=== PATIENT | female | born 1955 | race Caucasian/White ===

== ENCOUNTER 2018-06-03 14:24 | Outpatient (CLI) | payer OTHER ==
--- NOTE | 2018-06-04 12:00 | XRAY Report ---
Reason: LOW BACK PAIN, CHRONIC Procedure Date: 06/03/2018 Accession Number: [id number] / [id number] Procedure: WCP - Lumbar Spine 2 View CPT Code: FULL RESULT: EXAM: LUMBOSACRAL SPINE RADIOGRAPHY EXAM DATE: 06/03/2018 02:45 PM. CLINICAL HISTORY: Low back pain, chronic. COMPARISONS: None. TECHNIQUE: 2 views. FINDINGS: Alignment: Normal. No spondylolisthesis or scoliosis. Bones: Five [id number] lumbar vertebral bodies are present. No fractures or bone lesions. Disks: Mild degenerative disk changes predominately in the lower lumbar spine. Facets: Moderate facet arthropathy at L4 and L5. Sacroiliac Joints: Unremarkable. Soft Tissues: Normal. The visualized bowel gas pattern is normal. IMPRESSION: Overall mild degenerative changes. RADIA
== END 2018-06-03 14:25 | disposition home or self-care (01) ==
LOC: DI.WCP 14:24
PROVIDERS: ATTEND Family Medicine
DX: M51.36 Other intervertebral disc degeneration, lumbar region (principal); M47.9 Spondylosis, unspecified
CPT/HCPCS: 72100

== ENCOUNTER 2018-06-12 09:03 | Outpatient (CLI) | payer OTHER ==
[2018-06-12 13:05] LABS: BASOPHILS % (AUTO) 0.7 %; EOSINOPHILS # (AUTO) 0.2 10^3/uL (0.0-0.7); EOSINOPHILS % (AUTO) 2.5 %; HGB - HEMOGLOBIN 13.7 g/dL (12.0-16.0); LYMPHOCYTES # (AUTO) 1.4 10^3/uL (1.5-3.5); LYMPHOCYTES % (AUTO) 20.4 %; MEAN CORPUSCULAR HEMOGLOBIN 31.2 pg (27.0-31.0); MEAN CORPUSCULAR HGB CONC 33.6 g/dL (32.0-36.0); MEAN PLATELET VOLUME 8.7 fL (7.9-10.8); MONOCYTES # (AUTO) 0.6 10^3/uL (0.0-1.0); MONOCYTES % (AUTO) 8.6 %; NEUTROPHILS # (AUTO) 4.7 10^3/uL (1.5-6.6); NEUTROPHILS % (AUTO) 67.8 %; PLT - PLATELET COUNT 308 10^3/uL (130-450); WHITE BLOOD COUNT 6.9 x10^3/uL (4.8-10.8)
[2018-06-12 13:16] LABS: ALBUMIN 4.1 g/dL (3.2-5.5); ALBUMIN/GLOBULIN RATIO 1.3 (1.0-2.2); ALKALINE PHOSPHATASE 73 IU/L (42-121); ALT ALANINE AMINOTRANSFERASE 25 IU/L (10-60); AST ASPARTATE AMINOTRANSFERASE 27 IU/L (10-42); BILIRUBIN,TOTAL 0.7 mg/dL (0.2-1.0); BUN - BLOOD UREA NITROGEN 25 mg/dL (6-20); CALCIUM 8.8 mg/dL (8.5-10.3); CARBON DIOXIDE - CO2 25 mmol/L (21-32); CHLORIDE 98 mmol/L (101-111); CHOL/HDL RATIO 2.8 (<4.4); CHOLESTEROL 194 mg/dL; CREATININE 0.9 mg/dL (0.4-1.0); GFR - MDRD 63 (>89); GLUCOSE 85 mg/dL (70-100); HDL CHOLESTEROL 70 mg/dL; LDL CHOLESTEROL,CALCULATED 112 mg/dL; LDL/HDL RATIO 1.6 (<4.4); SODIUM 131 mmol/L (135-145); TOTAL PROTEIN 7.2 g/dL (6.7-8.2); VLDL CHOLESTEROL 12 mg/dL
== END 2018-06-12 23:59 | disposition home or self-care (01) ==
LOC: LAB.WCP 09:03
PROVIDERS: ATTEND Family Medicine
DX: Z00.00 Encounter for general adult medical examination without abnormal findings (principal); I10 Essential (primary) hypertension; E78.5 Hyperlipidemia, unspecified
CPT/HCPCS: 36415; 80053; 80061; 83721; 84443; 85025

== ENCOUNTER 2018-06-17 07:57 | Outpatient (CLI) | payer OTHER ==
--- NOTE | 2018-06-17 13:34 | Mammography Report ---
Reason: UNSPECIFIED LUMP IN THE LEFT BREAST,UPPERS INNER Q Procedure Date: 06/17/2018 Accession Number: [id number] / [id number] Procedure: RADHA - Diagnostic Dig Bilat CPT Code: FULL RESULT: EXAM: Diagnostic Dig Bilat, Breast Unilateral Limited DATE: 06/17/2018 8:52 AM CLINICAL HISTORY: Palpable left breast lump. No reported personal history of breast cancer. Family history breast cancer in mother at age 60. History of benign right breast excisional biopsy 1987. TECHNIQUE: Bilateral CC and MLO views were obtained. Additional spot magnification views left breast CC and MLO. Real-time ultrasound was performed by both the technologist and the radiologist.. COMPARISON: 06/02/2014. FINDINGS: The breasts demonstrate scattered fibroglandular densities bilaterally. Left breast: In the posterior 2:00 breast, 12 cm from the nipple there is an irregular mass with spiculated margins corresponding to the palpable finding measuring 24 x 27 x 20 mm (AP x SI x ML). Normal morphology lymph nodes are noted in the axilla. No additional masses within the breast. No suspicious calcifications. Targeted ultrasound at 2:00, 8 cm from nipple shows an irregular, hypoechoic mass with indistinct and angular margins measuring 23 mm in largest extent by sonography, corresponding to the mammographic/palpable finding. Survey of the axilla shows only normal morphology lymph nodes. Right breast: There are no suspicious masses, calcifications or areas of distortion. IMPRESSION: Left breast: 27 mm mass with spiculated margins corresponding to palpable lump per patient, posterior 2:00 breast as described. Highly suspicious of malignancy. BI-RADS Category 5. Ultrasound-guided biopsy and marker placement is recommended; biopsy scheduling was facilitated the time of this imaging appointment. Right breast: Negative. BI-RADS Category 1. Recommend annual screening mammography. BI-RADS CATEGORY 5: Highly suspicious of malignancy. STANDARD QUALIFYING STATEMENTS: 1. This examination was not reviewed with the aid of Computer-Aided Detection (CAD). 2. A negative or benign imaging report should not preclude biopsy if clinically suspicious findings are present. 3. Dense breasts may obscure an underlying neoplasm. 4. This examination was reviewed with the aid of 3D breast imaging (tomosynthesis).
== END 2018-06-17 07:58 | disposition home or self-care (01) ==
LOC: DI 07:57
PROVIDERS: ATTEND Family Medicine
DX: N63.22 Unspecified lump in the left breast, upper inner quadrant (principal); Z80.3 Family history of malignant neoplasm of breast
CPT/HCPCS: 76642; 77066

== ENCOUNTER 2018-06-30 13:36 | Outpatient (CLI) | payer OTHER ==
[2018-06-30] MEDS ORDERED: BUFFERED LIDOCAINE 10 ML SYRINGE ONE (13:57)
[2018-06-30] MEDS ORDERED: BUPIVACAINE 0.5%-EPI 1:200000 PF 10 ML VIAL ONE (13:58)
[2018-06-30] MEDS ORDERED: BUFFERED LIDOCAINE 10 ML SYRINGE IU ONE (15:32)
[2018-06-30] MEDS ORDERED: BUPIVACAINE 0.5%-EPI 1:200000 PF 10 ML VIAL SUBQ ONE (15:34)
--- NOTE | 2018-06-30 15:44 | Ultrasound Report ---
Reason: ABN MAMMO - LT BREAST LUMP Procedure Date: 06/30/2018 Accession Number: [id number] / [id number] Procedure: US - Biopsy Breast Core CPT Code: FULL RESULT: EXAM: Biopsy Breast Core, Diagnostic Dig LT DATE: 06/30/2018 3:30 PM CLINICAL HISTORY: Palpable breast mass with 27 mm highly suspicious mass upper outer left breast for biopsy. No reported personal history of breast cancer. Family history breast cancer in mother at age 60. TECHNIQUE: (L) - Left informed consent was obtained. Entry site was localized on the skin with ultrasound. Skin site was prepped and draped in usual sterile fashion. Skin and deeper tissues were anesthetized with 10 cc of 1% lidocaine and 5 cc of 2% Sensorcaine. Small dermatotomy was made in the skin. A 13-gauge coaxial needle guide was advanced into the breasts to the periphery of the mass. A 14-gauge coaxial achieve needle system was then used to obtain 3 core biopsies through the center of the mass. Each pass returned long cores of tissue which were sent in formalin for analysis. Biopsy marker was placed. Roberts were removed and hemostasis was achieved. Postprocedural mammogram shows biopsy marker associated with the mammographic mass in the posterior upper outer left breast. No postprocedural hematoma or other complication. COMPARISON: 06/17/2018 through 01/09/2012 IMPRESSION: Left breast: Successful ultrasound-guided needle biopsy and marker placement. Final recommendations pending histology. An addendum to this report will be issued when histology is returned.
== END 2018-06-30 13:37 | disposition home or self-care (01) ==
LOC: DI 13:36
PROVIDERS: ATTEND Family Medicine
DX: C50.412 Malignant neoplasm of upper-outer quadrant of left female breast (principal); Z17.0 Estrogen receptor positive status [ER+]
CPT/HCPCS: 19083

== ENCOUNTER 2018-07-29 08:21 | Day surgery (SDC) | payer OTHER ==
[~2018-07-29 08:21] MED LIST: ceFAZolin 2 GM/50 ML 2 GM/50 ML BAG IV ONE
[2018-07-29] MEDS ORDERED: METHYLENE BLUE 0.5% 50 MG/10 ML AMPULE IR ONE (08:22)
[2018-07-29] MEDS ORDERED: LACTATED RINGERS 1,000 ML IV ONE (08:51)
[2018-07-29] MEDS ORDERED: BUFFERED LIDOCAINE 10 ML SYRINGE ONE (09:18)
--- NOTE | 2018-07-29 11:41 | ANESTHESIA ---
Pre-Anesthesia VS, & Labs - Diagnosis left breast cancer - Procedure left breast lumpectomy with sentinel node biopsy Vital Signs: Temp Pulse Resp BP Pulse Ox 36.3 C L 70 15 146/74 H 99 07/29/18 08:30 07/29/18 08:30 07/29/18 08:30 07/29/18 08:30 07/29/18 08:30 Height 5 ft 5 in Weight (kg) 78.7 kg - NPO >8 hours - Is Patient ?: Not Applicable Home Medications and Allergies Home Medications: Ambulatory Orders Acetaminophen [Tylenol] 650 mg PO Q6H PRN 07/24/18 Albuterol Sulfate [Proair Hfa Inhaler] 1 - 2 puffs INH Q4H PRN 07/24/18 Atomoxetine HCl [Strattera] 40 mg PO DAILY 07/24/18 Bismuth Subsalicylate [Pepto-Bismol] 262 mg PO ONCE PRN 07/24/18 Cholecalciferol (Vitamin D3) [Vitamin D] 6,000 unit PO DAILY 07/24/18 Fluticasone [Flonase] 1 sprays CECILY BID 07/24/18 Naproxen Sodium [Aleve] 220 mg PO BID 07/24/18 Omeprazole 20 mg PO DAILY 07/24/18 hydrOXYzine pamoate [Hydroxyzine Pamoate] 25 mg PO QID PRN 07/24/18 Atenolol [Tenormin] 50 mg PO DAILY 04/04/14 buPROPion [Wellbutrin Sr] 150 mg PO BID 07/16/14 Cetirizine [ZyrTEC] 10 mg PO DAILY 07/20/14 traMADol [Ultram] 50 mg PO Q4-6H PRN 03/27/16 Acetaminophen [Tylenol] 650 mg PO Q6H PRN 07/24/18 Albuterol Sulfate [Proair Hfa Inhaler] 1 - 2 puffs INH Q4H PRN 07/24/18 Atomoxetine HCl [Strattera] 40 mg PO DAILY 07/24/18 Bismuth Subsalicylate [Pepto-Bismol] 262 mg PO ONCE PRN 07/24/18 Cholecalciferol (Vitamin D3) [Vitamin D] 6,000 unit PO DAILY 07/24/18 Fluticasone [Flonase] 1 sprays CECILY BID 07/24/18 Naproxen Sodium [Aleve] 220 mg PO BID 07/24/18 Omeprazole 20 mg PO DAILY 07/24/18 hydrOXYzine pamoate [Hydroxyzine Pamoate] 25 mg PO QID PRN 07/24/18 Allergies/Adverse Reactions: Allergies Allergy/AdvReac Type Severity Reaction Status Date / Time lisinopril AdvReac Intermediate cough Verified 07/16/14 14:29 amphetamine aspartate * AdvReac Nausea Verified 03/27/16 07:39 [From Adderall] dextroamphetamine saccharate AdvReac Nausea Verified 03/27/16 07:39 * [From Adderall] diphenhydramine AdvReac body Verified 07/24/18 13:41 [From Benadryl] twitching and jerking Anes History & Medical History - Anesthetic History Anesthesia Complications: reports: Post-Operative Nausea/Vomiting Family history of Anesthesia Complications: Denies Family history of Malignant Hyperthermia: Denies - Medical History Cardiovascular: reports: Hypertension Pulmonary: reports: Asthma, Pneumonia Gastrointestinal: reports: GERD, Other Urinary: reports: None Musculoskeletal: reports: Osteoarthritis, Chronic back pain Endocrine/Autoimmune: reports: None Blood Disorders: reports: None Skin: reports: None Smoking Status: Never smoker - Surgical History Eyes Ears Nose Throat (EENT): Cataracts Gynecologic: Other Orthopedic: Carpal Tunnel surgery, Other Exam General: Alert, Oriented x3, Cooperative Dental: Dentures full Upper, Partials Lower Mouth Openin Fingerbreadth Neck Mobility: Normal Mallampati classification: II Thyromental Distance: 4-6 cm Respiratory: Lungs clear, Normal breath sounds, No respiratory distress, No accessory muscle use Cardiovascular: Normal S1, Normal S2 Mental/Cognitive Status: Alert/Oriented X3, Normal for patient Cognitive Status: Within normal limits Plan Anesthesia Type: General Consent for Procedure(s) Verified and Reviewed: Yes Code Status: Attempt Resuscitation ASA classification: 2-Mild systemic disease Is this case an emergency?: No
[2018-07-29] MEDS ORDERED: SCOPOLAMINE PATCH TOP ONE (12:02)
[2018-07-29] MEDS ORDERED: ceFAZolin 2 GM/50 ML 2 GM/50 ML BAG IV ONE (12:43)
[2018-07-29] MEDS ORDERED: DEXAMETHASONE 4 MG/ML VIAL IVP ONE (12:43)
[2018-07-29] MEDS ORDERED: LIDOCAINE-MPF 1% 5 ML VIAL SUBQ ONE (12:43)
[2018-07-29] MEDS ORDERED: ACETAMINOPHEN 1,000 MG/100 ML 100 ML IV ONE (12:43)
[2018-07-29] MEDS ORDERED: fentaNYL 100 MCG/2 ML VIAL IVP ONE (12:43)
[2018-07-29] MEDS ORDERED: KETOROLAC 30 MG/ML VIAL IVP ONE (12:43)
[2018-07-29] MEDS ORDERED: PROPOFOL 200 MG/20 ML VIAL IVP ONE (12:43)
[2018-07-29] MEDS ORDERED: ONDANSETRON 4 MG/2 ML VIAL IVP ONE (12:43)
[2018-07-29] MEDS ORDERED: GLYCOPYRROLATE 1 MG/5 ML VIAL IVP ONE (12:43)
[2018-07-29] MEDS ORDERED: BUPIVACAINE 0.5% PF 30 ML VIAL INFIL ONE ×2 (12:54)
[2018-07-29] MEDS: fentaNYL 100 MCG/2 ML VIAL ONE ×3 (13:54→14:10)
[2018-07-29] MEDS ORDERED: HYDROmorphone 0.5 MG/0.5 ML SYRINGE IVP PRN (14:00)
[2018-07-29] MEDS ORDERED: HYDROcod/ACETAM 5/325 MG TABLET PO PRN (14:00)
[2018-07-29] MEDS ORDERED: ONDANSETRON 4 MG/2 ML VIAL IVP PRN (14:00)
--- NOTE | 2018-07-29 14:00 | OPERATIVE REPORT ---
Operative Report - General Procedure Date: 07/29/18 Planned Procedure: Left lumpectomy and left sentinel lymph node biopsy Pre-Op Diagnosis: Left breast cancer Procedure Performed: Left lumpectomy and left sentinel lymph node biopsy Post Op Diagnosis: Same - Procedure Note Primary Surgeon: Joshua Buitrago MD Anesthesia Provider: Joshua Cash MD Anesthesia Technique: General ET tube, Local (30 mL of half percent Marcaine) IV Fluids (mL): 500 Estimated Blood Loss (mL): 30 Drain/Tube Type: Other (None.) Complications: None. - Other Other Information/Narrative: OPERATIVE DESCRIPTION/REPORT: After verbal and written informed consent was obtained detailing the risks of infection, bleeding requiring transfusion with its risks, nerve injury, and , and after I met with the patient confirming the surgery and the site of the surgery, the patient was brought to the operative suite and placed supine on the operating table. I did not initial the operative site since it was defined by the localization wire. Great care was taken to avoid pressure points to prevent pressure necrosis or nerve injury. Monitoring devices were applied along with TEDs and pneumatic compressive stockings (to prevent DVT). The patient received preoperative antibiotics for surgical prophylaxis. Dr. Joshua Cash sedated and anesthetized the patient for the entire procedure. The patient was prepped and draped in the usual sterile manner. A "time in" then confirmed that the patient was identified with 3 identifiers (name, date and medical record number), the history and physical was in the chart, the signed consent confirming the procedure was in the chart, the patient was in the correct position, the aforementioned prophylactic measures were in place or given, we had the correct personnel and equipment to complete the procedure and that anesthesia, surgery and nursing were given an opportunity to express any concerns. With the agreement of everyone in the room, we proceeded with the operation. The periareolar subcutaneous tissue was injected using a total of 7 mL of methylene blue and 1 mL aliquots and the breast was massaged for 5 minutes to permit passage of the methylene blue to the axillary lymph nodes. After looking at the location of the breast cancer the upper outer quadrant of the left breast I decided one incision could be used for both the sentinel lymph node dissection as well as the excision of the cancer (lumpectomy) as long as I performed the sentinel lymph node biopsy first. A transverse incision was made bisecting the distance between the hot localized lymph node in the left axilla and the cancer. Dissection using a combination of Bovie electrocautery and Metzenbaum scissors was used to dissect down to the fascia and open the fascia overlying axilla proper. Guidance was provided with the gamma probe. Gentle dissection using traction and counter-traction with Schnitz demonstrated the sentinel node clearly. The in vivo 10 second count was 3248. Traction and counter-traction allowed the lymph node to be removed without disrupting the capsule. The ex vivo count was 5248. Examination of the axilla with the probe did not reveal any area that was even remotely as "hot" as the sentinel lymph hode that had been removed. Consequently, the sentinel lymph node was sent to pathology. Copious water lavage was used to remove any debris, and hemostasis was obtained with Bovie electrocautery. I then directed my attention to the breast lesion. There was some fairly significant scarring around this lesion and it was unclear surgically whether or not this was a multifocal lesion or whether or not this represented simply scarring. At any rate it was important to get a negative margin and as a result the hard tissue was taken along with the malignancy using a combination of Metzenbaum scissors, and Bovie electrocautery. Every attempt was made to get approximately 1 cm of normal tissue around the lesion. The specimen was marked with a long stitch laterally, a short stitch superiorly, and a double stitch deep. A small hard nodule superiorly and medially to the initial excision was excised separately using Bovie electrocautery and sent for pathologic evaluation and a separate pathology container. Meticulous hemostasis was obtained using Bovie electrocautery. The subcutaneous tissues were approximated using a 3-0 Vicryl in an interrupted manner, and the skin incision was approximated with 4-0 Monocryl in a subcuticular fashion. The incision and subcutaneous tissues were injected with a total of 30 mL of half percent Marcaine for pain control. The prep was washed off and Dermabond was applied. At this point a time out was performed that confirmed that all the counts were correct, the procedure that was performed, the blood loss, the urine output, the IV fluids administered, and the patients condition. Dressings were applied. Having tolerated the procedure well, the patient was subsequently extubated and taken to recovery room in good and stable condition. Ankita disclaimer: This document was created in part using voice recognition technology. Because of the inherent limitations of the system ([employer]'s [employer] user manual states that the licensee understands that speech recognition is a statistical process and that recognition errors are inherent in the process), occasional same sounding word substitutions and grammatical errors do occur and persist despite proofreading. Please read this document for context.
--- NOTE | 2018-07-29 14:39 | Nuclear Medicine Report ---
Reason: LT BREAST CA Procedure Date: 07/29/2018 Accession Number: [id number] / [id number] Procedure: NM - Lymph Node Scintigraphy CPT Code: FULL RESULT: EXAM: Lymph Node Scintigraphy DATE: 07/29/2018 12:11 PM CLINICAL HISTORY: LT BREAST CA preop. COMPARISON: 06/30/2018 TRACER: 0.48 mCi technetium 99m filtered sulfur colloid TECHNIQUE: The left periareolar region is cleansed with alcohol in standard fashion. Approximately 1 cc of lidocaine 1% followed by 0.48 mCi technetium 99m filtered sulfur colloid are injected. Sequential images are obtained until the left upper outer quadrant sentinel lymph node is identified. The lymph node is marked and the procedure terminated. The patient is taken to the operating room in good condition. IMPRESSION: Successful sentinel lymph node injection left breast.
[2018-07-29] MEDS ORDERED: oxyCODONE 5 MG TABLET ONE (14:54)
[2018-07-29 15:43] VITALS: BP 138/75
== END 2018-07-29 08:22 | disposition home or self-care (01) ==
LOC: SDS 08:21
PROVIDERS: ATTEND Surgery
PROC: 07B60ZX Excision of Left Axillary Lymphatic, Open Approach, Diagnostic (ICD-10-PCS; 2018-07-29)
PROC: 0HBU0ZZ Excision of Left Breast, Open Approach (ICD-10-PCS; principal; 2018-07-29 12:15)
DX: C50.412 Malignant neoplasm of upper-outer quadrant of left female breast (principal); Z17.0 Estrogen receptor positive status [ER+]; I10 Essential (primary) hypertension; J45.909 Unspecified asthma, uncomplicated; K21.9 Gastro-esophageal reflux disease without esophagitis; G89.29 Other chronic pain; M54.9 Dorsalgia, unspecified; Z79.51 Long term (current) use of inhaled steroids; Z87.01 Personal history of pneumonia (recurrent); Z79.1 Long term (current) use of non-steroidal anti-inflammatories (NSAID); Z80.3 Family history of malignant neoplasm of breast
CPT/HCPCS: 19301; 38525; 38792; 78195; A9270; J0131; J0690; J3490; J7120

== ENCOUNTER 2018-08-14 09:08 | Emergency (ER) | payer OTHER ==
[2018-08-14 09:23] VITALS: BP 171/73
[2018-08-14] MEDS ORDERED: cefTRIAXone 1 GM in SODIUM CHLORIDE 0.9% MINIBAG 100 ML IV STA (09:44)
[2018-08-14] MEDS ORDERED: IBUPROFEN 800 MG TABLET PO STA (09:45)
[2018-08-14] MEDS ORDERED: oxyCODONE 5 MG TABLET PO STA (09:52)
--- NOTE | 2018-08-14 09:53 | ED Physician Documentation ---
History of Present Illness - Stated complaint Stated Complaint: BREAST INFECTION - Chief complaint Chief Complaint: General - History obtained from History obtained from: Patient - History of Present Illness Timing: How many weeks ago (2) - Treatment prior to arrival Treatment prior to arrival: Started taking Cephalexin yesterday. - Additonal information Additional information: The patient is a 63-year-old female who presents with left breast pain. She was recently diagnosed with breast cancer, and underwent lumpectomy 2 weeks ago. She has noticed increasing pain in her left breast particularly over the last 2 days. She was seen by her oncologist, Dr. Segura, 2 days ago, and was prescribed cephalexin which she first started yesterday. She denies fever. She has had nausea intermittently for the past week. Zofran has helped with the nausea. She reports headache intermittently. She had a left-sided rash 1 week ago. It resolved spontaneously over a period of 5 days. Review of Systems Constitutional: reports: Fatigue. denies: Fever Eyes: denies: Irritation Ears: denies: Tinnitus/ringing Nose: denies: Congestion Throat: denies: Sore throat Cardiac: denies: Chest pain / pressure Respiratory: denies: Dyspnea, Cough GI: reports: Nausea. denies: Abdominal Pain, Vomiting : denies: Dysuria Skin: reports: Rash (last week, but not currently.) Musculoskeletal: denies: Extremity pain Neurologic: reports: Headache (global). denies: Focal weakness, Numbness PD PAST MEDICAL HISTORY - Past Medical History Cardiovascular: Hypertension Respiratory: Asthma, Pneumonia Endocrine/Autoimmune: None GI: GERD, Other CLINICAL COORDINATOR: None : None HEENT: Chronic vision loss, Other Psych: Depression, Anxiety, ADD/ADHD, Claustrophobia Musculoskeletal: Osteoarthritis, Chronic back pain Derm: None Other Past Medical History: Breast cancer, recently diagnosed. - Past Surgical History Past Surgical History: No Ortho: Carpal Tunnel surgery, Other /CLINICAL COORDINATOR: Other Neuro: Other HEENT: Cataracts - Present Medications Home Medications: Ambulatory Orders Medication Instructions Recorded Confirmed Atenolol [Tenormin] 50 mg PO DAILY 04/04/14 08/14/18 buPROPion [Wellbutrin Sr] 150 mg PO BID 07/16/14 08/14/18 Cetirizine [ZyrTEC] 10 mg PO DAILY 07/20/14 08/14/18 traMADol [Ultram] 50 mg PO Q4-6H PRN 03/27/16 08/14/18 Acetaminophen [Tylenol] 650 mg PO Q6H PRN 07/24/18 08/14/18 Atomoxetine HCl [Strattera] 40 mg PO DAILY 07/24/18 08/14/18 Bismuth Subsalicylate 262 mg PO ONCE PRN 07/24/18 08/14/18 [Pepto-Bismol] Cholecalciferol (Vitamin D3) 6,000 unit PO DAILY 07/24/18 08/14/18 [Vitamin D] Fluticasone [Flonase] 1 sprays CECILY BID 07/24/18 08/14/18 Naproxen Sodium [Aleve] 220 mg PO BID 07/24/18 08/14/18 Omeprazole 20 mg PO DAILY 07/24/18 08/14/18 hydrOXYzine pamoate [Hydroxyzine 25 mg PO QID PRN 07/24/18 08/14/18 Pamoate] Docusate Sodium 250Mg Capsule 250 mg PO DAILY #10 capsule 07/29/18 08/14/18 [Colace 250Mg Capsule] Cephalexin [Keflex] 500 mg PO QIDX7 08/13/18 08/14/18 Ondansetron Odt [Zofran] 4 mg TL Q6H PRN #10 tablet 08/14/18 Oxycodone HCl/Acetaminophen 1 - 2 each PO Q6H PRN #14 tablet 08/14/18 [Percocet 5-325 mg Tablet] - Allergies Allergies/Adverse Reactions: Allergies Allergy/AdvReac Type Severity Reaction Status Date / Time lisinopril AdvReac Intermediate cough Verified 08/14/18 09:23 amphetamine aspartate * AdvReac Nausea Verified 08/14/18 09:23 [From Adderall] dextroamphetamine saccharate AdvReac Nausea Verified 08/14/18 09:23 * [From Adderall] diphenhydramine AdvReac body Verified 08/14/18 09:23 [From Benadryl] twitching and jerking - Social History Does the pt smoke?: No Smoking Status: Never smoker Does the pt drink ETOH?: No Does the pt have substance abuse?: No - Immunizations Immunizations are current?: Yes - POLST Patient has POLST: No PD ED PE NORMAL - Vitals Vital signs reviewed: Yes (hypertensive) - General General: Alert and oriented X 3, Well developed/nourished - HEENT HEENT: Atraumatic, Pharynx benign - Neck Neck: Supple, no meningeal sign, No adenopathy, No JVD - Cardiac Cardiac: RRR, No murmur - Respiratory Respiratory: No respiratory distress, Clear bilaterally - Abdomen Abdomen: Soft, Non tender - Back Back: No CVA TTP - Derm Derm: No rash - Extremities Extremities: No edema, No calf tenderness / cord - Neuro Neuro: Alert and oriented X 3, No motor deficit, No sensory deficit, Normal speech - Free text exam Free text exam: Left breast has a healing lumpectomy site on the superior lateral quadrant. There is no surrounding erythema at the wound site. There is tenderness of the left breast, particularly in the areolar and nipple region. Minimal surrounding erythema. The left breast is slightly warm compared to the right. It appears slightly enlarged compared to the right. There is no inguinal adenopathy appreciated. Results - Vitals Vitals: Vital Signs - 24 hr 08/14/18 09:16 Temperature 35.9 C L Heart Rate 82 Respiratory 15 Rate Blood Pressure 171/73 H O2 Saturation 100 Oxygen O2 Source [With Activity] Room air O2 Source [Without Activity] Room air O2 Source Room air PD MEDICAL DECISION MAKING - ED course Complexity details: re-evaluated patient, considered differential, d/w patient ED course: The patient's presentation is consistent with cellulitis or mastitis of the left breast. Having started cephalexin yesterday, I do not think the few doses have been enough to produce a significant result yet. I do not think it would be clinically warranted to change the antibiotic unless there is no improvement after at least 2 or 3 days of antibiotic treatment. Treatment in the emergency department included administration of ceftriaxone 1 g IV. Ibuprofen 800 mg was administered orally. I discussed with her the expected course of illness, continued antibiotic treatment and outpatient follow-up, as well as potentially worrisome signs or symptoms that should prompt reevaluation in the emergency department. She is being discharged with pres criptions for Zofran and for Percocet. She will continue taking cephalexin. Departure - Departure Disposition: 01 Home, Self Care Clinical Impression: Mastitis, left, acute Breast cancer Qualifiers: Breast location: unspecified site of breast Estrogen receptor status: unspecified Patient sex: female Laterality: left Qualified Code(s): C50.912 - Malignant neoplasm of unspecified site of left female breast Condition: Stable Instructions: ED Breast Infec Follow-Up: Max Eaton DO [Primary Care Provider] - Mikayla Segura MD [Physician No Access] - Prescriptions: Ondansetron Odt [Zofran] 4 mg TL Q6H PRN #10 tablet PRN Reason: Nausea / Vomiting Oxycodone HCl/Acetaminophen [Percocet 5-325 mg Tablet] 1 - 2 each PO Q6H PRN #14 tablet PRN Reason: pain Comments: Continue taking cephalexin as previously prescribed. You can use Zofran as prescribed if needed for nausea. Can use ibuprofen, up to 800 mg 3 times daily if needed for headache or other discomfort. He can use Percocet as prescribed if needed for pain. Follow-up with your oncologist or with your primary physician within 1 to 2 weeks. Call to schedule an appointment. Return to the emergency department if you develop increasing redness, swelling, or pain of your breast, or otherwise worsening symptoms. Discharge Date/Time: 08/14/18 10:30
== END 2018-08-14 10:30 | disposition home or self-care (01) ==
LOC: ED 09:08
DX: N61.0 Mastitis without abscess (principal); C50.912 Malignant neoplasm of unspecified site of left female breast; I10 Essential (primary) hypertension; Z98.890 Other specified postprocedural states
CPT/HCPCS: 96374; 99283; A9270

== ENCOUNTER 2018-10-10 09:11 | Day surgery (SDC) | payer OTHER ==
[2018-10-10] MEDS ORDERED: LACTATED RINGERS 1,000 ML IV ONE (09:18)
--- NOTE | 2018-10-10 09:36 | ANESTHESIA ---
Pre-Anesthesia VS, & Labs - Diagnosis Breast CA - Procedure Portacath placement Vital Signs: Temp Pulse Resp BP Pulse Ox 36.1 C L 63 12 135/69 H 97 10/10/18 09:31 10/10/18 09:31 10/10/18 09:31 10/10/18 09:31 10/10/18 09:31 Height 5 ft 3 in Weight (kg) 79.4 kg Body Mass Index 30.0 - NPO >8 hours - Is Patient ?: No - Lab Results Lab results reviewed: Yes Home Medications and Allergies Home Medications: Ambulatory Orders Albuterol Sulfate [Proair Hfa Inhaler] 1 - 2 puffs INH Q4H PRN 10/07/18 Ibuprofen [Motrin] 600 mg PO Q6H PRN 10/07/18 Atenolol [Tenormin] 50 mg PO DAILY 04/04/14 buPROPion [Wellbutrin Sr] 150 mg PO BID 07/16/14 Cetirizine [ZyrTEC] 10 mg PO DAILY 07/20/14 traMADol [Ultram] 50 mg PO Q4-6H PRN 03/27/16 Acetaminophen [Tylenol] 650 mg PO Q6H PRN 07/24/18 Fluticasone [Flonase] 1 sprays CECILY BID 07/24/18 hydrOXYzine pamoate [Hydroxyzine Pamoate] 25 mg PO QID PRN 07/24/18 Albuterol Sulfate [Proair Hfa Inhaler] 1 - 2 puffs INH Q4H PRN 10/07/18 Ibuprofen [Motrin] 600 mg PO Q6H PRN 10/07/18 Allergies/Adverse Reactions: Allergies Allergy/AdvReac Type Severity Reaction Status Date / Time lisinopril AdvReac Intermediate cough Verified 08/14/18 09:23 amphetamine aspartate * AdvReac Nausea Verified 08/14/18 09:23 [From Adderall] atomoxetine [From Strattera] AdvReac Unknown Verified 10/10/18 09:24 dextroamphetamine saccharate AdvReac Nausea Verified 08/14/18 09:23 * [From Adderall] diphenhydramine AdvReac body Verified 08/14/18 09:23 [From Benadryl] twitching and jerking Anes History & Medical History - Anesthetic History Anesthesia Complications: reports: No previous complications Family history of Anesthesia Complications: Denies Family history of Malignant Hyperthermia: Denies - Medical History Cardiovascular: reports: Hypertension Pulmonary: reports: Asthma, Pneumonia Gastrointestinal: reports: GERD, Other Urinary: reports: None Musculoskeletal: reports: Osteoarthritis, Chronic back pain Endocrine/Autoimmune: reports: None Blood Disorders: reports: None Skin: reports: None Smoking Status: Never smoker - Surgical History Eyes Ears Nose Throat (EENT): Cataracts Gynecologic: Other Neurologic: Other Orthopedic: Carpal Tunnel surgery, Other Exam General: Alert, Oriented x3, Cooperative Dental: WNL, Dentures full Upper, Partials Lower Mouth Openin Fingerbreadth Neck Mobility: Reduced (reduced side to side movement) Mallampati classification: II Thyromental Distance: 4-6 cm Respiratory: Lungs clear, Normal breath sounds Cardiovascular: Regular rate Neurological: Normal speech Mental/Cognitive Status: Alert/Oriented X3, Normal for patient Cognitive Status: Within normal limits Plan Anesthesia Type: General Consent for Procedure(s) Verified and Reviewed: Yes Code Status: Attempt Resuscitation ASA classification: 3-Severe systemic disease Is this case an emergency?: No
[2018-10-10] MEDS ORDERED: CEFAZOLIN SODIUM IN 0.9 % NACL 2 GM/100 ML BAG IV ONE ×2 (09:46→11:04)
[2018-10-10] MEDS: BUPIVACAINE 0.5% PF 10 ML VIAL ONE ×2 (10:40→11:00)
[2018-10-10] MEDS ORDERED: ePHEDrine 50 MG/ML VIAL IVP ONE (11:04)
[2018-10-10] MEDS ORDERED: LIDOCAINE-MPF 2% 5 ML VIAL IM ONE (11:04)
[2018-10-10] MEDS ORDERED: fentaNYL 100 MCG/2 ML VIAL IVP ONE (11:04)
[2018-10-10] MEDS ORDERED: PROPOFOL 200 MG/20 ML VIAL IVP ONE (11:04)
--- NOTE | 2018-10-10 11:14 | OPERATIVE REPORT ---
Operative Report - General Procedure Date: 10/10/18 Planned Procedure: Port-A-Cath placement Pre-Op Diagnosis: Breast cancer requiring chemotherapy Procedure Performed: Port-A-Cath placement in the right subclavian vein Post Op Diagnosis: Same - Procedure Note Primary Surgeon: Joshua Buitrago MD Anesthesia Provider: Joshua Cash MD Anesthesia Technique: General ET tube, Local (10 mL of half percent Marcaine) IV Fluids (mL): 550 Estimated Blood Loss (mL): 5 Complications: None. - Other Other Information/Narrative: OPERATIVE DESCRIPTION/REPORT: After verbal and written informed consent was obtained detailing the risks of infection, bleeding requiring transfusion with its risks, nerve injury, and , and after I met with the patient confirming the surgery and the site of the surgery, the patient was brought to the operative suite and placed supine on the operating table. Great care was taken to avoid pressure points to prevent pressure necrosis or nerve injury. Monitoring devices were applied along with TEDs and pneumatic compressive stockings (to prevent DVT). The patient received preoperative antibiotics for surgical prophylaxis. Dr. Joshua Cash sedated and anesthetized the patient for the entire procedure. The patient was prepped and draped in the usual sterile manner. A "time in" then confirmed that the patient was identified with 3 identifiers (name, date and medical record number), the history and physical was in the chart, the signed consent confirming the procedure was in the chart, the patient was in the correct position, the aforementioned prophylactic measures were in place or given, we had the correct personnel and equipment to complete the procedure and that anesthesia, surgery and nursing were given an opportunity to express any concerns. With the agreement of everyone in the room, we proceeded with the operation. After the subclavian region was anesthetized using % marcaine and the patient placed in Trendelenberg position, an [employer] Smartport kit (Catalog #[id number], Lot #[id number]) was opened. The finder needle was inserted into the subclavian vein taking great care to place it just under the clavicle in order to minimize the risk of pneumothorax. When good venous blood return was obtained, the wire was placed through the needle and into the vein without difficulty. Cardiac irritability confirmed that the catheter was correctly going down towards the heart. Below and lateral to the needle insertion site, the area was anesthetized again using % marcaine and a transverse incision was made just large enough to accommodate the port. This incision was taken down to the fascia using sharp dissection and the area for the port was created using blunt downward dissection. Meticulous hemostasis was obtained using Bovie electr ocautery. A knife was inserted along the wire to widen the insertion site and this was further dilated using a Michelle. The port was flushed with heparinized saline and placed in the pouch and the catheter was then passed to the needle opening using the passer. The catheter was then measured against the patients anterior chest and cut so that the tip would lie 2 cm below the manubrial- sternal junction. The port was secured to the fascia using a 3-0 Prolene on the side of the opening of the port. The catheter was then wiped and wrapped with a heparinized soaked 4x4. The dilator and sheath were then carefully inserted over the wire and the dilator and wire withdrawn. The catheter was then inserted into the sheath and the sheath was broken away from the catheter leaving the catheter in place in the vein. An X-ray confirmed placement of the catheter tip deep in the right atrium without pneumothorax. Using a Chamorro needle the port was accessed and although there was good flush and there was no good blood return and it appeared that the tip of the catheter was up against the wall in the atrium. As a result, I cut the stitch holding the Port-A-Cath in place, removed the port from its pouch and cut 2-1/2 cm off of the catheter. The catheter was then reinserted onto the port and the collar was placed to secure it. This was then placed back into the pouch and resecured. This time there was excellent blood return and excellent flow of heparinized saline. A repeat chest x-ray revealed that the tip of the catheter was in excellent position of the right atrium. The subcutaneous tissue was approximated using 3-0 Vicryl and the skin incisions were approximated with 4-0 Monocryl in a subcuticular fashion. The skin prep was washed off and prepped with benzoin. Steristrips were applied. At this point a time out was performed that confirmed that all the counts were correct, the procedure that was performed, the blood loss, the IV fluids administered, and the patients condition. A dressing was placed on the wound. Having tolerated the procedure well, the patient was taken to short stay in good and stable condition. The patient was instructed that the Portacath could be used immediately. Dragon disclaimer: This document was created in part using voice recognition technology. Because of the inherent limitations of the system ([email or web address]'s Dragon Dictate user manual states that the licensee understands that speech recognition is a statistical process and that recognition errors are inherent in the process), occasional same sounding word substitutions and grammatical errors do occur and persist despite proofreading. Please read this document for context.
[2018-10-10] MEDS ORDERED: HYDROmorphone 0.5 MG/0.5 ML SYRINGE IVP PRN (11:20)
[2018-10-10] MEDS ORDERED: HYDROcod/ACETAM 5/325 MG TABLET PO PRN (11:20)
[2018-10-10] MEDS ORDERED: ONDANSETRON 4 MG/2 ML VIAL IVP PRN (11:20)
--- NOTE | 2018-10-10 11:23 | XRAY Report ---
Reason: line placement Procedure Date: 10/10/2018 Accession Number: [id number] / [id number] Procedure: XR - Chest for Line Placement CPT Code: FULL RESULT: EXAM: CHEST RADIOGRAPHY EXAM DATE: 10/10/2018 11:03 AM. CLINICAL HISTORY: Line Placement. COMPARISON: None. TECHNIQUE: 1 view. FINDINGS: Lungs/Pleura: Diffuse pulmonary vascular congestion and possible mild edema present. A portion of the lateral left lower chest was cut off from this single view. No pneumothorax evident. Mediastinum: Within exam limitations, the cardiomediastinal contour is normal. Other: A Port-A-Cath overlies the right chest terminating in the proximal right atrium approximately 1.0 cm below the cavoatrial junction. IMPRESSION: 1. Right chest Port-A-Cath terminates in the most proximal right atrium. 2. Cardiopulmonary vascular congestion with probable mild edema. RADIA
[2018-10-10] MEDS ORDERED: oxyCODONE 5 MG TABLET PO PRN (11:31)
[2018-10-10] MEDS ORDERED: HYDROmorphone 0.5 MG/0.5 ML SYRINGE ONE (11:33)
[2018-10-10 12:07] VITALS: BP 136/69
[2018-10-10] MEDS ORDERED: oxyCODONE 5 MG TABLET ONE (12:13)
--- NOTE | 2018-10-15 11:25 | XRAY Report ---
Reason: S/P PORT PLACEMENT Procedure Date: 10/10/2018 Accession Number: [id number] / [id number] Procedure: XR - Post Port Placement 1V CXR CPT Code: 57155 FULL RESULT: EXAM: CHEST RADIOGRAPHY EXAM DATE: 10/10/2018 11:01 AM. CLINICAL HISTORY: Status post port placement. COMPARISON: None. TECHNIQUE: 1 view. FINDINGS: Lungs/Pleura: Limited evaluation due to partial exclusion of the left hemithorax as well as rotation and overlying hardware. Within these limitations, there are increased pulmonary markings without lobar consolidation. No sizable pleural effusion or pneumothorax as visualized. Mediastinum: Within exam limitations, the cardiomediastinal contour is apparently enlarged, potentially exacerbated by AP portable technique. Other: Right subclavian approach central venous port placement with catheter tip in the region of the superior cavoatrial junction. IMPRESSION: Right subclavian approach central venous port as described. RADIA
== END 2018-10-10 09:12 | disposition home or self-care (01) ==
LOC: SDS 09:11
PROVIDERS: ATTEND Surgery
PROC: 02H633Z Insertion of Infusion Device into Right Atrium, Percutaneous Approach (ICD-10-PCS; 2018-10-10)
PROC: 0JH63WZ Insertion of Totally Implantable Vascular Access Device into Chest Subcutaneous Tissue and Fascia, Percutaneous Approach (ICD-10-PCS; principal; 2018-10-10 10:30)
DX: C50.412 Malignant neoplasm of upper-outer quadrant of left female breast (principal); I10 Essential (primary) hypertension; J45.909 Unspecified asthma, uncomplicated; Z79.899 Other long term (current) drug therapy; Z79.51 Long term (current) use of inhaled steroids
CPT/HCPCS: 36561; A9270; C1788; J0690; J1170; J7120; 71045

== ENCOUNTER 2019-06-26 10:03 | Outpatient (CLI) | payer MEDICARE, OTHER | END 2019-06-26 10:04 | disposition home or self-care (01) | LOC: COV 10:03 | PROVIDERS: ATTEND Family Medicine | DX: R05 Cough (principal) ==

== ENCOUNTER 2019-07-31 08:00 | Outpatient (CLI) | payer MEDICARE, OTHER ==
[2019-07-31 13:36] LABS: CALCIUM 9.6 mg/dL (8.5-10.3); CREATININE 0.9 mg/dL (0.4-1.0)
== END 2019-07-31 23:59 | disposition home or self-care (01) ==
LOC: LAB.WCP 08:00
PROVIDERS: ATTEND Family Medicine
DX: I10 Essential (primary) hypertension (principal)
CPT/HCPCS: 36415; 80048

== ENCOUNTER 2020-06-09 11:41 | Day surgery (SDC) | payer MEDICARE, OTHER ==
[2020-06-09] MEDS ORDERED: LACTATED RINGERS 1,000 ML IV ONE (12:29)
--- NOTE | 2020-06-09 12:39 | ANESTHESIA ---
Pre-Anesthesia VS, & Labs - Diagnosis screening - Procedure colonoscopy Vital Signs: Temp Pulse Resp BP Pulse Ox 36.6 C 82 16 135/62 H 98 06/09/20 12:00 06/09/20 12:00 06/09/20 12:00 06/09/20 12:00 06/09/20 12:00 Height: 5 ft 4 in Weight (kg): 86.7 kg Body Mass Index: 32.8 BMI Classification: Obese - NPO >8 hours - Is Patient ?: No - Lab Results Lab results reviewed: Yes Home Medications and Allergies Home Medications: Ambulatory Orders Aspirin [Aspirin EC] 1 tab ORAL DAILY 06/09/20 Carvedilol [Coreg] 1 tab ORAL BID 06/09/20 DULoxetine [Cymbalta] 90 mg ORAL DAILY 06/09/20 Exemestane [Aromasin] 1 tab ORAL DAILY 06/09/20 Hydrochlorothiazide 1 tab ORAL DAILY 06/09/20 Losartan [Cozaar] 100 mg ORAL DAILY 06/09/20 Omeprazole Magnesium 1 cap ORAL DAILY 06/09/20 atenoloL [Tenormin] 50 mg PO DAILY 04/04/14 buPROPion [Wellbutrin Sr] 150 mg PO BID 07/16/14 Cetirizine [ZyrTEC] 10 mg PO DAILY 07/20/14 traMADol [Ultram] 50 mg PO Q4-6H PRN 03/27/16 Acetaminophen [Tylenol] 650 mg PO Q6H PRN 07/24/18 Fluticasone [Flonase] 1 sprays CECILY BID 07/24/18 hydrOXYzine pamoate [Hydroxyzine Pamoate] 25 mg PO QID PRN 07/24/18 Albuterol Sulfate [Proair Hfa Inhaler] 1 - 2 puffs INH Q4H PRN 10/07/18 Ibuprofen [Motrin] 600 mg PO Q6H PRN 10/07/18 LORazepam [Ativan] 0.5 mg PO DAILY PRN 10/10/18 Aspirin [Aspirin EC] 1 tab ORAL DAILY 06/09/20 Carvedilol [Coreg] 1 tab ORAL BID 06/09/20 DULoxetine [Cymbalta] 90 mg ORAL DAILY 06/09/20 Exemestane [Aromasin] 1 tab ORAL DAILY 06/09/20 Hydrochlorothiazide 1 tab ORAL DAILY 06/09/20 Losartan [Cozaar] 100 mg ORAL DAILY 06/09/20 Omeprazole Magnesium 1 cap ORAL DAILY 06/09/20 Allergies/Adverse Reactions: Allergies Allergy/AdvReac Type Severity Reaction Status Date / Time lisinopril AdvReac Intermediate cough Verified 08/14/18 09:23 amphetamine aspartate * AdvReac Nausea Verified 08/14/18 09:23 [From Adderall] atomoxetine [From Strattera] AdvReac Unknown Verified 10/10/18 09:24 dextroamphetamine saccharate AdvReac Nausea Verified 08/14/18 09:23 * [From Adderall] diphenhydramine AdvReac body Verified 08/14/18 09:23 [From Benadryl] twitching and jerking Anes History & Medical History - Anesthetic History Anesthesia Complications: reports: No previous complications Family history of Anesthesia Complications: Denies Family history of Malignant Hyperthermia: Denies - Medical History Cardiovascular: reports: Hypertension Pulmonary: reports: Asthma, Pneumonia Gastrointestinal: reports: GERD, Other Urinary: reports: None Musculoskeletal: reports: Osteoarthritis, Chronic back pain Endocrine/Autoimmune: reports: None Blood Disorders: reports: None Skin: reports: None Smoking Status: Never smoker - Surgical History Eyes Ears Nose Throat (EENT): reports: Cataracts Gynecologic: reports: Other Neurologic: reports: Other Orthopedic: reports: Carpal Tunnel surgery, Other Exam General: Alert, Oriented x3, Cooperative Dental: Dentures full Upper, Partials Lower Mouth Openin Fingerbreadth Neck Mobility: Reduced Mallampati classification: II Thyromental Distance: 4-6 cm Respiratory: Lungs clear, Normal breath sounds, No respiratory distress Cardiovascular: Regular rate Neurological: Normal speech Mental/Cognitive Status: Alert/Oriented X3, Normal for patient Cognitive Status: Within normal limits Plan Anesthesia Type: Total IV Consent for Procedure(s) Verified and Reviewed: Yes Code Status: Attempt Resuscitation ASA classification: 3-Severe systemic disease Is this case an emergency?: No
[2020-06-09] MEDS ORDERED: PROPOFOL 200 MG/20 ML VIAL IVP ONE ×2 (12:52→13:09)
[2020-06-09] MEDS ORDERED: LIDOCAINE-MPF 2% 5 ML VIAL ONE (13:04)
[2020-06-09] MEDS ORDERED: LACTATED RINGERS 800 ML IV ONE (13:06)
[2020-06-09 13:41] VITALS: BP 122/70
--- NOTE | 2020-06-09 14:59 | ANESTHESIA POST OP EVALUATION ---
Anesthesia Post Eval - Post Anesthesia Eval Vitals: Last Vital Signs Temp 36.4 C L 06/09/20 13:40 Pulse 71 06/09/20 13:40 Resp 16 06/09/20 13:40 BP 122/70 06/09/20 13:40 Pulse Ox 100 06/09/20 13:40 CV Function Including HR & BP: positive: Stable Pain Control: positive: Satisfactory Nausea & Vomiting: positive: Negative Mental Status: positive: Patient Participates Respiratory Status: Airway Patent Hydration Status: Satisfactory Anesthesia Complications: positive: None
== END 2020-06-09 11:42 | disposition home or self-care (01) ==
LOC: SDS 11:41
PROVIDERS: ATTEND Surgery
DX: Z12.11 Encounter for screening for malignant neoplasm of colon (principal); K57.30 Diverticulosis of large intestine without perforation or abscess without bleeding; J45.909 Unspecified asthma, uncomplicated; I10 Essential (primary) hypertension; E78.5 Hyperlipidemia, unspecified; K21.9 Gastro-esophageal reflux disease without esophagitis; F32.9 Major depressive disorder, single episode, unspecified; F98.8 Other specified behavioral and emotional disorders with onset usually occurring in childhood and adolescence; G89.29 Other chronic pain; M54.9 Dorsalgia, unspecified; M19.90 Unspecified osteoarthritis, unspecified site; H91.90 Unspecified hearing loss, unspecified ear; E66.9 Obesity, unspecified; Z68.32 Body mass index [BMI] 32.0-32.9, adult; Z79.82 Long term (current) use of aspirin; Z79.51 Long term (current) use of inhaled steroids; Z79.899 Other long term (current) drug therapy; Z87.01 Personal history of pneumonia (recurrent)
CPT/HCPCS: G0121; J7120

== ENCOUNTER 2021-01-16 08:37 | Emergency (ER) | payer MEDICARE, OTHER ==
[2021-01-16 09:39] LABS: BASOPHILS # (AUTO) 0.1 10^3/uL (0.0-0.1); BASOPHILS % (AUTO) 0.8 %; EOSINOPHILS # (AUTO) 0.2 10^3/uL (0.0-0.7); EOSINOPHILS % (AUTO) 2.6 %; HCT - HEMATOCRIT 41.1 % (37.0-47.0); HGB - HEMOGLOBIN 13.1 g/dL (12.0-16.0); LYMPHOCYTES # (AUTO) 1.5 10^3/uL (1.5-3.5); LYMPHOCYTES % (AUTO) 19.7 %; MEAN CORPUSCULAR HEMOGLOBIN 28.7 pg (27.0-31.0); MEAN CORPUSCULAR HGB CONC 31.9 g/dL (32.0-36.0); MEAN CORPUSCULAR VOLUME 89.9 fL (81.0-99.0); MEAN PLATELET VOLUME 9.9 fL (7.9-10.8); MONOCYTES # (AUTO) 0.6 10^3/uL (0.0-1.0); MONOCYTES % (AUTO) 8.6 %; NEUTROPHILS # (AUTO) 5.1 10^3/uL (1.5-6.6); PLT - PLATELET COUNT 411 10^3/uL (130-450); RED BLOOD COUNT 4.57 10^6/uL (4.20-5.40); RED CELL DISTRIBUTION WIDTH 13.7 % (12.0-15.0); WHITE BLOOD COUNT 7.4 x10^3/uL (4.8-10.8)
[2021-01-16] MEDS ORDERED: SODIUM CHLORIDE 0.9% 1,000 ML IV STA (09:50)
[2021-01-16] MEDS ORDERED: SUCRALFATE 1 GM/10 ML UDC PO STA (09:50)
--- NOTE | 2021-01-16 09:53 | ED Physician Documentation ---
PD HPI NVD - Stated complaint Stated Complaint: NAUSEA,VOMITING - Chief complaint Chief Complaint: Abd Pain - History obtained from History obtained from: Patient - History of Present Illness Timing - onset: How many days ago (20) Timing - duration: Days (20) Timing - details: Gradual onset, Still present, Waxing and waning Associated symptoms: Other (vomiting and bloating, burping and hiccups). 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 She is on Nexium for GERD that she developed with her chemotherapy. She is continuing the Nexium. She is not taking ibuprofen or Aleve and she is not drinking alcohol. She does indicate that she has had a significant amount of stress with the of her a year and a half ago. 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 The patient is not sleeping well. She has had periodic vomiting and feels dehydrated. She felt well yesterday ate quite a bit and today is symptomatic again. 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: Other Neuro: Other HEENT: Cataracts - Present Medications Home Medications: Ambulatory Orders Medication Instructions Recorded Confirmed buPROPion [Wellbutrin Sr] 150 mg PO BID 07/16/14 01/16/21 Acetaminophen [Tylenol] 650 mg PO Q6H PRN 07/24/18 01/16/21 Albuterol Sulfate [Proair Hfa 1 - 2 puffs INH Q4H PRN 10/07/18 01/16/21 Inhaler] Aspirin [Aspirin EC] 1 tab ORAL DAILY 06/09/20 01/16/21 Carvedilol [Coreg] 1 tab ORAL BID 06/09/20 01/16/21 Losartan [Cozaar] 100 mg ORAL DAILY 06/09/20 01/16/21 Omeprazole Magnesium 1 cap ORAL DAILY 06/09/20 01/16/21 hydroCHLOROthiazide 1 tab ORAL DAILY 06/09/20 01/16/21 [Hydrochlorothiazide] Cetirizine [ZyrTEC] 10 mg PO DAILY PRN 01/16/21 01/16/21 Fluticasone [Flonase] 1 sprays CECILY BID PRN 01/16/21 01/16/21 Oxycodone HCl 10 mg PO Q4HR PRN 01/16/21 01/16/21 Promethazine [Phenergan] 25 mg PO Q6H PRN #10 tab 01/16/21 Sucralfate [Carafate] 1 gm PO ACHS #60 tablet 01/16/21 - Allergies Allergies/Adverse Reactions: Allergies Allergy/AdvReac Type Severity Reaction Status Date / Time lisinopril AdvReac Intermediate cough Verified 01/16/21 08:41 amphetamine aspartate * AdvReac Nausea Verified 01/16/21 08:41 [From Adderall] atomoxetine [From Strattera] AdvReac Unknown Verified 01/16/21 08:41 dextroamphetamine saccharate AdvReac Nausea Verified 01/16/21 08:41 * [From Adderall] diphenhydramine AdvReac body Verified 01/16/21 08:41 [From Benadryl] twitching and jerking - Social History Does the pt smoke?: No Smoking Status: Never smoker Does the pt drink ETOH?: No Does the pt have substance abuse?: No - Immunizations Immunizations are current?: Yes - POLST Patient has POLST: No PD ED PE NORMAL - Vitals Vital signs reviewed: Yes (hypertensive ) - General General: Alert and oriented X 3, No acute distress, Well developed/nourished - HEENT HEENT: Atraumatic, PERRL, EOMI - Neck Neck: Supple, no meningeal sign, No bony TTP - Cardiac Cardiac: RRR, No murmur - Respiratory Respiratory: No respiratory distress, Clear bilaterally - Abdomen Abdomen: Normal bowel sounds, Soft, Non distended, No organomegaly, Other (mild RUQ tenderness) - Back Back: No CVA TTP, No spinal TTP - Derm Derm: Normal color, Warm and dry, No rash - Extremities Extremities: No deformity, No edema - Neuro Neuro: Alert and oriented X 3, 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, No motor deficit, No sensory deficit, Normal speech Eye Opening: Spontaneous Motor: Obeys Commands Verbal: Oriented GCS Score: 15 - Psych Psych: Normal mood, Normal affect Results - Vitals Vitals: Vital Signs - 24 hr 01/16/21 01/16/21 08:41 11:17 Temperature 36.6 C Heart Rate 74 74 Respiratory 18 Rate Blood Pressure 153/85 H 155/68 H O2 Saturation 99 Oxygen O2 Source [With Activity] Room air O2 Source [Without Activity] Room air O2 Source Room air - Labs Labs: Laboratory Tests 01/16/21 01/16/21 01/16/21 09:10 09:10 09:10 WBC 7.4 RBC 4.57 Hgb 13.1 Hct 41.1 MCV 89.9 MCH 28.7 MCHC 31.9 L RDW 13.7 Plt Count 411 MPV 9.9 Neut # (Auto) 5.1 Lymph # (Auto) 1.5 Yates # (Auto) 0.6 Eos # (Auto) 0.2 Baso # (Auto) 0.1 Absolute Nucleated RBC 0.00 Nucleated RBC % 0.0 Sodium 135 Potassium 3.6 Chloride 95 L Carbon Dioxide 28 Anion Gap 12.0 BUN 19 Creatinine 0.9 Estimated GFR (MDRD) 63 L Glucose 109 H Calcium 10.0 Total Bilirubin 0.9 AST 24 ALT 26 Alkaline Phosphatase 108 Total Protein 8.4 H Albumin 4.6 Globulin 3.8 Albumin/Globulin Ratio 1.2 Lipase 58 H Urine Color YELLOW Urine Clarity CLEAR Urine pH 7.0 Ur Specific [place] 1.010 Urine Protein NEGATIVE Urine Glucose (UA) NEGATIVE Urine Ketones NEGATIVE Urine Occult Blood NEGATIVE Urine Nitrite NEGATIVE Urine Bilirubin NEGATIVE Urine Urobilinogen 0.2 (NORMAL) Ur Leukocyte Esterase NEGATIVE Ur Microscopic Review NOT INDICATED Urine Culture Comments NOT INDICATED PD MEDICAL DECISION MAKING - ED course Complexity details: reviewed results, re-evaluated patient, considered differential, d/w patient ED course: 65-year-old female who is on Nexium has had some issue with some stomach fullness and nausea as well as hiccups and burps. She has had undulating symptoms and yesterday was feeling quite well had a bigger meal and is again feeling not so well. I suspect she has some gastric outlet obstruction from ulcer or pyloric irritation. We have provided her with some Carafate today and I have asked her to reduce her oral intake of solid foods and to follow-up with Dr. Fajardo for scoping if she does not have resolution of her symptoms. Departure - Departure Disposition: Home, Self Care Clinical Impression: Stress reaction Gastritis Qualifiers: Gastritis type: unspecified gastritis Chronicity: acute Gastritis bleeding: without bleeding Qualified Code(s): K29.00 - Acute gastritis without bleeding Condition: Stable Instructions: ED Stress React, ED PUD Vs Gastritis Follow-Up: Max Eaton DO [Primary Care Provider] - Donell Fajardo MD [Provider Admit Priv/Credential] - Prescriptions: Sucralfate [Carafate] 1 gm PO ACHS #60 tablet Promethazine [Phenergan] 25 mg PO Q6H PRN #10 tab PRN Reason: Nausea / Vomiting Forms: Activity restrictions
[2021-01-16 09:56] LABS: ALBUMIN 4.6 g/dL (3.2-5.5); ALBUMIN/GLOBULIN RATIO 1.2 (1.0-2.2); BILIRUBIN,TOTAL 0.9 mg/dL (0.2-1.0); CREATININE 0.9 mg/dL (0.4-1.0); POTASSIUM 3.6 mmol/L (3.5-5.0); TOTAL PROTEIN 8.4 g/dL (6.7-8.2)
[2021-01-16 10:50] LABS: BILIRUBIN,URINE NEGATIVE (NEGATIVE); GLUCOSE, URINE (UA) NEGATIVE (NEGATIVE); KETONES,URINE (UA) NEGATIVE (NEGATIVE); LEUKOCYTE ESTERASE, URINE NEGATIVE (NEGATIVE); NITRITE,URINE NEGATIVE (NEGATIVE); OCCULT BLOOD,URINE NEGATIVE (NEGATIVE); PROTEIN,URINE NEGATIVE (NEGATIVE); UROBILINOGEN,URINE 0.2 (NORMAL) E.U./dL (NORMAL)
[2021-01-16 10:52] LABS: CLARITY,URINE CLEAR (CLEAR)
[2021-01-16 11:17] VITALS: BP 155/68
== END 2021-01-16 11:44 | disposition home or self-care (01) ==
LOC: ED 08:37
DX: K29.00 Acute gastritis without bleeding (principal); F43.9 Reaction to severe stress, unspecified; K21.9 Gastro-esophageal reflux disease without esophagitis; Z85.3 Personal history of malignant neoplasm of breast; Z92.21 Personal history of antineoplastic chemotherapy
CPT/HCPCS: 36415; 80053; 81003; 83690; 85025; 99283; A9270; 81001; 87086

== ENCOUNTER 2021-02-17 15:16 | Outpatient (CLI) | payer MEDICARE, OTHER ==
--- NOTE | 2021-02-17 16:48 | SLEEP CARE CONSULTATION ---
Information from patient questionnaire entered by Eliceo Lofton MA. I have reviewed and concur with the information entered by Eliceo Lofton MA. This document represents the service I personally performed and the decisions made by , Aline Rangel ARNP. History of Present Illness Service Date and Time: 02/17/2021 1516 Reason for Visit: New patient, Previously diagnosed sleep apnea, Re-establish care, Other (update supplies, re evalutation, ) Chief Complaint: reports: Other (not having issues with gasping anymore). denies: Unrefreshed sleep, Snoring, Observed pauses in breathing Usual bedtime: 830 pm Time it takes to fall asleep: 15 20 minutes Snores at night: No (not that I know of) Observed to quit breathing while asleep: No (not in the last 6 months) Number of times waking at night: 2 Reasons for waking at night: reports: Pain, Bathroom Toss, Turn, or Twitch while sleeping: No Recalls having dreams: Yes Usually gets out of bed at: 0530 when workin 730 when off Feels refreshed in the morning: Yes Morning headache: No Ever fallen asleep while driving: No Dreams during day naps: Yes Prior sleep studies: Yes Year and Where: 2020 [facility] Additional HPI information: JOANA WALTON was previously diagnosed to have severe, AHI 54.9, obstructive sleep apnea-hypopnea syndrome and comes in today to establish care for CPAP therapy. She completed a sleep study in July 2020 in [place] and was diagnosed with sleep apnea. She states put on a lot of weight during cancer treatment and had some difficulty with not being able to take a breath while laying down. She was then evaluated and diagnosed with sleep apnea. She has not had any followup since starting on her CPAP and has many questions. She has used the CPAP but it has been intermittent. - Parasomnia Symptoms Ever been unable to move upon waking from sleep: No Walks in sleep: No Talks in sleep: Yes (occassionally) Ever acted out dreams in sleep: No Ever felt weak in the knees when startled or emotional: No Bothered by creepy, crawly, restless sensations in legs: No Problems with memory or concentration: Yes (ADHD) CPAP Compliance Data - Data Reviewed with Patient Average duration of nightly device use: 4 hours 32 minutes Compliance rate %: 10 Current pressure setting (cmH2O): 5-20 (median 5.8, avg 8.6, maximum 10.1) Average residual AHI: 2.9 Central apnea: 1.5 Obstructive apnea: 0.8 Compliance data discussion: She has gotten her CPAP and supplies from [facility]. She is using an AirFit P10 nasal pillows mask, small. Subjective Patient concerns: reports: mask discomfort (mask will come loose and come unsealed and leak), dry mouth, nose, throat (mouth comes open when sleeping). 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 Patient is / and lives in . Have you smoked in the past 12 months: No Alcohol use: No Caffeine amount and frequency: 2 tea x daily Family History Family history of sleep disordered breathing: No Allergies and Home Medications Drug allergies reviewed: Yes (see list in chart) Home medication list reviewed: Yes Allergy and home medication list: Plavix bimatoprost 0.03% topical Carvedilol 25 mg Diclofenac 1% gelt, prn fluticasone propionate, prn HCTZ 25 mg Lidocaine patch, 5 % Losartan 100 mg Narcan 4 mg/0.1 ml nasal spray Omeprazole 40 mg bid Ondansetron, prn Oxycodone 10 mg Wellbutrin SR 150 mg Zyrtec, prn Review of Systems Cardiovascular: reports: high blood pressure Gastrointestinal: reports: heartburn Psychiatric: reports: Attention Deficit Hyperactivity Ear/Nose/Throat: reports: wisdom teeth removed, other (allergies) Musculoskeletal: reports: joint pain, neck pain, back pain, muscle pain or cramping Immunologic: reports: allergies to food or environment Physical Exam Vital signs obtained and entered by: Katelin Lofton CMA AAMA Blood Pressure: 126/72 (left) Cuff size: wrist Heart Rate: 69 O2 Saturation: 97 (with mask) Height: 5 ft 4 in Weight: 185 lb (with boots) Body Mass Index: 31.7 BMI Classification: Obese Heart: regular rate and rhythm Lungs: clear bilaterally Impression and Plan 1. Obstructive Sleep Apnea-Hypopnea Syndrome, severe, with poor treatment compliance and good apnea control. Patient was started on CPAP without much support and would like to see where it goes. She last used it in November 2020. I will have her restart her CPAP and try to increase her compliance on the CPAP, but we may have to re-qualify her with another sleep study if her insurance asks for this. She voiced understanding. She has problems with the mask becoming unsealed when she is moving at night. She is using a nasal pillows mask and has not changed it out for a new cushion since she started with CPAP. I advised her to try to get a new mask and try a medium instead of the small to see if she gets a better seal. She also thinks her mouth is coming open with the mask on and she wakes up with very dry throat. I advised using a chin strap to keep mouth closed. Oral dryness can be reduced by adjusting humidity setting higher or heated hose lower or by adjusting both settings. Verbal instructions given on how to change humidity and heated hose settings with rationale explaining why to change. Patient's apnea severity and rationale for treatment to reduce apnea, improve sleep quality and reduce cardiovascular and cerebrovascular events was reviewed. I also reviewed the benefit of consistent device use of CPAP for hypertension. Patient was encouraged to lose weight for their overall health and to reduce apneas. * Change auto CPAP pressure to 6-10 cmH2O * Chin strap * Notify me if snoring with mask or feeling that the pressure is too much or too little * Attempt to lose weight * Call this office if any problems using CPAP * Return for follow up in 1-2 months, or sooner if concerns arise Counseling Topics: Spare mask, Weight loss health impact Visit Type: In Office Time Spent with Patient (minutes): 37 Provider Statement: I spent 100% of the Face to Face Visit with the patient with greater than 50% spent counseling the patient and coordination of care.
[2021-02-17 16:49] VITALS: BP 126/72
== END 2021-02-17 15:17 | disposition home or self-care (01) ==
LOC: SC 15:16
PROVIDERS: ATTEND Nurse Practitioner Family
DX: G47.33 Obstructive sleep apnea (adult) (pediatric) (principal); E66.9 Obesity, unspecified; Z68.31 Body mass index [BMI] 31.0-31.9, adult
CPT/HCPCS: 99203; G0463; 99212

== ENCOUNTER 2021-03-04 08:00 | Outpatient (CLI) | payer MEDICARE, OTHER ==
[2021-03-04 16:42] LABS: BASOPHILS % (AUTO) 0.5 %; EOSINOPHILS # (AUTO) 0.2 10^3/uL (0.0-0.7); HCT - HEMATOCRIT 38.2 % (37.0-47.0); HGB - HEMOGLOBIN 12.1 g/dL (12.0-16.0); LYMPHOCYTES # (AUTO) 1.5 10^3/uL (1.5-3.5); LYMPHOCYTES % (AUTO) 25.2 %; MEAN CORPUSCULAR HEMOGLOBIN 28.5 pg (27.0-31.0); MEAN CORPUSCULAR HGB CONC 31.7 g/dL (32.0-36.0); MEAN CORPUSCULAR VOLUME 89.9 fL (81.0-99.0); MEAN PLATELET VOLUME 10.3 fL (7.9-10.8); MONOCYTES # (AUTO) 0.5 10^3/uL (0.0-1.0); MONOCYTES % (AUTO) 8.1 %; NEUTROPHILS # (AUTO) 3.8 10^3/uL (1.5-6.6); PLT - PLATELET COUNT 352 10^3/uL (130-450); RED BLOOD COUNT 4.25 10^6/uL (4.20-5.40); RED CELL DISTRIBUTION WIDTH 13.7 % (12.0-15.0)
[2021-03-04 16:54] LABS: ALBUMIN/GLOBULIN RATIO 1.2 (1.0-2.2); BILIRUBIN,TOTAL 0.7 mg/dL (0.2-1.0); CALCIUM 9.5 mg/dL (8.5-10.3); CREATININE 0.8 mg/dL (0.4-1.0); POTASSIUM 3.6 mmol/L (3.5-5.0); TOTAL PROTEIN 7.3 g/dL (6.7-8.2)
== END 2021-03-04 23:59 | disposition home or self-care (01) ==
LOC: LAB.N 08:00
PROVIDERS: ATTEND Nurse Practitioner
DX: R11.10 Vomiting, unspecified (principal)
CPT/HCPCS: 36415; 80053; 82150; 83690; 85025

== ENCOUNTER 2021-03-21 06:57 | Outpatient (CLI) | payer MEDICARE, OTHER ==
--- NOTE | 2021-03-21 12:00 | Ultrasound Report ---
PROCEDURE: Abdomen Limited INDICATIONS: Nausea, vomiting TECHNIQUE: Real-time focused scanning was performed of the abdomen, with image documentation. COMPARISON: None FINDINGS: Increased hepatic parenchymal echogenicity indicative of hepatic steatosis. Normal hepatic echotexture and contour. No focal hepatic mass. No intrahepatic biliary ductal dilatation. Normal ca liber common hepatic duct and common bile duct. The gallbladder is normally distended with no sludge, stone, wall thickening, or pericholecystic fluid. Visualized portions of the pancreas are normal (ta il not well visualized due to obscuration by overlying bowel gas). Right kidney normal with no shadow ing calculus or hydronephrosis. IMPRESSION: Moderate hepatic steatosis. No cholelithiasis or cholecystitis. No biliary ductal dilatation or pancreatic ductal dilatation. Reviewed by: Samuel Bermudez MD on 03/21/2021 11:59 AM PST Approved by: Samuel Bermudez MD on 03/21/2021 11:59 AM PST Station ID: [id number]
== END 2021-03-21 06:58 | disposition home or self-care (01) ==
LOC: DI 06:57
PROVIDERS: ATTEND Internal Medicine
DX: K76.0 Fatty (change of) liver, not elsewhere classified (principal); R11.2 Nausea with vomiting, unspecified

== ENCOUNTER 2021-04-10 06:55 | Day surgery (SDC) | payer MEDICARE, OTHER ==
[2021-04-10] MEDS ORDERED: LACTATED RINGERS 1,000 ML IV ONE ×2 (07:17→09:10)
--- NOTE | 2021-04-10 08:11 | ANESTHESIA ---
Pre-Anesthesia VS, & Labs - Diagnosis Nausea/vomiting - Procedure EGD Vital Signs: Temp Pulse Resp BP Pulse Ox 36.5 C 61 16 163/61 H 97 04/10/21 07:04 04/10/21 07:04 04/10/21 07:04 04/10/21 07:04 04/10/21 07:04 Height: 5 ft 4 in Weight (kg): 81.2 kg Body Mass Index: 30.7 BMI Classification: Obese - NPO >8 hours - Is Patient ?: No Home Medications and Allergies buPROPion [Wellbutrin Sr] 150 mg PO BID 07/16/14 Acetaminophen [Tylenol] 650 mg PO Q6H PRN 07/24/18 Albuterol Sulfate [Proair Hfa Inhaler] 1 - 2 puffs INH Q4H PRN 10/07/18 Aspirin [Aspirin EC] 1 tab ORAL DAILY 06/09/20 Carvedilol [Coreg] 1 tab ORAL BID 06/09/20 Losartan [Cozaar] 100 mg ORAL DAILY 06/09/20 Omeprazole Magnesium 1 cap ORAL DAILY 06/09/20 hydroCHLOROthiazide [Hydrochlorothiazide] 1 tab ORAL DAILY 06/09/20 Cetirizine [ZyrTEC] 10 mg PO DAILY PRN 01/16/21 Fluticasone [Flonase] 1 sprays CECILY BID PRN 01/16/21 Oxycodone HCl 10 mg PO Q4HR PRN 01/16/21 Ondansetron HCl [Zofran] 4 mg PO QID 03/15/21 Tamoxifen Citrate 20 mg PO DAILY 03/15/21 Allergies/Adverse Reactions: Allergies Allergy/AdvReac Type Severity Reaction Status Date / Time lisinopril AdvReac Intermediate cough Verified 01/16/21 08:41 amphetamine aspartate * AdvReac Nausea Verified 01/16/21 08:41 [From Adderall] atomoxetine [From Strattera] AdvReac Unknown Verified 01/16/21 08:41 dextroamphetamine saccharate AdvReac Nausea Verified 01/16/21 08:41 * [From Adderall] diphenhydramine AdvReac body Verified 01/16/21 08:41 [From Benadryl] twitching and jerking Anes History & Medical History - Anesthetic History Anesthesia Complications: reports: No previous complications - Medical History Cardiovascular: reports: Hypertension Pulmonary: reports: Asthma (well controlled), Sleep apnea (does not use CPAP) Gastrointestinal: reports: GERD (controlled with med) Urinary: reports: None Neuro: reports: None Musculoskeletal: reports: Osteoarthritis, Osteoporosis, Chronic back pain (takes opioid daily) Endocrine/Autoimmune: reports: None Blood Disorders: reports: None Skin: reports: None Smoking Status: Never smoker Psychosocial: reports: Depression, Opioid History of Cancer?: Yes (breast cancer s/p chemo and radiation) - Surgical History General: reports: Colonoscopy Eyes Ears Nose Throat (EENT): reports: Cataracts Gynecologic: reports: Other Neurologic: reports: Other Orthopedic: reports: Carpal Tunnel surgery Exam General: Alert, Oriented x3, Cooperative, No acute distress Dental: Dentures full Upper, Poor dentition Mouth Openin Fingerbreadth Neck Mobility: Normal Mallampati classification: II Thyromental Distance: 4-6 cm Mental/Cognitive Status: Alert/Oriented X3, Normal for patient Plan Anesthesia Type: General, Total IV Consent for Procedure(s) Verified and Reviewed: Yes Code Status: Attempt Resuscitation ASA classification: 2-Mild systemic disease Is this case an emergency?: No
[2021-04-10] MEDS ORDERED: PROPOFOL 500 MG/50 ML 500 MG/50 ML VIAL ONE (08:23)
[2021-04-10] MEDS ORDERED: LIDOCAINE-MPF 2% 5 ML VIAL ONE (08:24)
[2021-04-10 09:36] VITALS: BP 160/63
--- NOTE | 2021-04-10 16:27 | ANESTHESIA POST OP EVALUATION ---
Anesthesia Post Eval - Post Anesthesia Eval Vitals: Last Vital Signs Temp 36.2 C L 04/10/21 09:23 Pulse 65 04/10/21 09:34 Resp 19 04/10/21 09:34 BP 160/63 H 04/10/21 09:34 Pulse Ox 98 04/10/21 09:34 CV Function Including HR & BP: Stable Pain Control: Satisfactory Nausea & Vomiting: Negative Mental Status: Baseline Respiratory Status: Airway Patent Hydration Status: Satisfactory Anesthesia Complications: None
== END 2021-04-10 06:56 | disposition home or self-care (01) ==
LOC: SDS 06:55
PROVIDERS: ATTEND Surgery
PROC: 0DB78ZX Excision of Stomach, Pylorus, Via Natural or Artificial Opening Endoscopic, Diagnostic (ICD-10-PCS; 2021-04-10)
PROC: 0DB58ZX Excision of Esophagus, Via Natural or Artificial Opening Endoscopic, Diagnostic (ICD-10-PCS; 2021-04-10)
PROC: 0DB48ZX Excision of Esophagogastric Junction, Via Natural or Artificial Opening Endoscopic, Diagnostic (ICD-10-PCS; 2021-04-10)
PROC: 0DB98ZX Excision of Duodenum, Via Natural or Artificial Opening Endoscopic, Diagnostic (ICD-10-PCS; principal; 2021-04-10 08:15)
DX: R11.2 Nausea with vomiting, unspecified (principal); I25.10 Atherosclerotic heart disease of native coronary artery without angina pectoris; K59.03 Drug induced constipation; T40.605A Adverse effect of unspecified narcotics, initial encounter
CPT/HCPCS: 43239; J7120

== ENCOUNTER 2021-05-17 16:41 | Outpatient (CLI) | payer MEDICARE, OTHER ==
--- NOTE | 2021-05-17 17:11 | SLEEP CARE CONSULTATION ---
Information from patient questionnaire entered by Eliceo Lofton MA. I have reviewed and concur with the information entered by Eliceo Lofton MA. This document represents the service I personally performed and the decisions made by , Aline Rangel ARNP. History of Present Illness Service Date and Time: 05/17/2021 1641 Previous diagnosis: Severe, Obstructive Sleep Apnea-Hypopnea Syndrome AHI: 54.9 Reason for follow up: other (8 WEEK F/U, PRESSURE CHANGE,) Equipment type: CPAP Equipment obtained from: [employer] (getting supplies as needed) Mask style: Nasal Backup mask available: Yes (old mask) Last cushion change: don't know Prior sleep studies: Yes Year and Where: 2020 [facility] HPI additional information: GUADALUPE WALTON was diagnosed to have severe, AHI 54.9, obstructive sleep apnea- hypopnea syndrome and returned today for CPAP therapy 8 week follow-up. Sleep Study - Results Prior sleep studies: Yes Year and Where: 2020 [facility] CPAP Compliance Data - Data Reviewed with Patient Average duration of nightly device use: 4 HOURS 27 MINUTES Compliance rate %: 8 Current pressure setting (cmH2O): 6-10 Average residual AHI: 1.1 Central apnea: .0 Obstructive apnea: .1 Average large leak: 17.6 Subjective Missed days of use due to: reports: travel (for three weeks) Patient concerns: reports: dry mouth, nose, throat (HORRIBLE DRY MOUTH). denies: aerophagia, mask discomfort, air blowing in eyes, mask leak noise, condensation in mask/hose, nasal congestion, epistaxis Observed to snore while using device: No Current pressure setting perceived as: comfortable (SLEEPS INCLINED AND BLOWS HER MOUTH OPEN occasionally) On therapy, patient: reports: other (not feeling she is sleeping better yet). denies: drowsiness while driving Initial [place] Sleepiness Scale score: 4 (in 2020) Current [place] Sleepiness Scale score: 8 (2021) Allergies and Home Medications Home medication list reviewed: Yes (tamoxifen) Allergy and home medication list: Allergies lisinopril Adverse Reaction (Intermediate, Verified 01/16/21 08:41) cough amphetamine aspartate * [From Adderall] Adverse Reaction (Verified 01/16/21 08:41) Nausea atomoxetine [From Strattera] Adverse Reaction (Verified 01/16/21 08:41) Unknown dextroamphetamine saccharate * [From Adderall] Adverse Reaction (Verified 01/16/21 08:41) Nausea diphenhydramine [From Benadryl] Adverse Reaction (Verified 01/16/21 08:41) body twitching and jerking Review of Systems Review of systems same as previous: Yes (no changes ) Physical Exam Vital signs obtained and entered by: Katelin LOFTON CMA AAMA Blood Pressure: 149/83 (RIGHT, PULSE 69, RESP 18,) Cuff size: wrist Heart Rate: 72 O2 Saturation: 91 (PAPER MASK) Height: 5 ft 4 in Weight: 180 lb (PER PT) Body Mass Index: 30.9 BMI Classification: Obese Impression and Plan 1. Obstructive Sleep Apnea-Hypopnea Syndrome, severe, with poor treatment compliance and good apnea control. Guadalupe has been having mouth dryness issues with using the CPAP. She does not feel she is sleeping better yet because she is waking up with this dry mouth. She states that changing to a bigger size of her nasal cushion resolved a lot of mask discomfort issues. She still has some oral venting going on. She will blow out air when sleeping with her head up. I recommend that she use a chinstrap to reduce oral venting and to adjust the humidity on her CPAP. Oral dryness can be reduced by adjusting humidity setting higher or heated hose lower or by adjusting both settings. Verbal instructions given on how to change humidity and heated hose settings with rationale explaining why to change. Patient's apnea severity and rationale for treatment to reduce apnea, improve sleep quality and reduce cardiovascular and cerebrovasc ular events was reviewed. I also reviewed the benefit of consistent device use of CPAP for hypertension. * Continue auto CPAP pressure at 6-10 cmH2O * Chin strap for oral venting * Patient will adjust humidity on machine to reduce oral dryness * Notify me if snoring with mask or feeling that the pressure is too much or too little * Attempt to lose weight * Call this office if any problems using CPAP * Return for follow up in 1-2 months, or sooner if concerns arise Counseling Topics: Spare mask Visit Type: In Office Time Spent with Patient (minutes): 20 Provider Statement: I spent 100% of the Face to Face Visit with the patient with greater than 50% spent counseling the patient and coordination of care.
[2021-05-17 17:12] VITALS: BP 149/83
== END 2021-05-17 16:42 | disposition home or self-care (01) ==
LOC: SC 16:41
PROVIDERS: ATTEND Nurse Practitioner Family
DX: G47.33 Obstructive sleep apnea (adult) (pediatric) (principal)
CPT/HCPCS: 99213; G0463; 99212

== ENCOUNTER 2021-06-09 08:23 | Outpatient (CLI) | payer MEDICARE, OTHER ==
[2021-06-09 09:06] VITALS: BP 132/76
--- NOTE | 2021-06-09 09:06 | SLEEP CARE CONSULTATION ---
Information from patient questionnaire entered by Eliceo Lofton MA. I have reviewed and concur with the information entered by Eliceo Lofton MA. This document represents the service I personally performed and the decisions made by , Aline Rangel ARNP. History of Present Illness Service Date and Time: 06/09/2021822 Previous diagnosis: Severe, Obstructive Sleep Apnea-Hypopnea Syndrome AHI: 54.9 Reason for follow up: other (2 WEEK F/U ) Equipment type: CPAP Equipment obtained from: [employer] (getting supplies) Mask style: Nasal Backup mask available: No (will keep old mask when replaced) Last cushion change: 2 weeks Prior sleep studies: Yes Year and Where: [facility] HPI additional information: GUADALUPE WALTON was diagnosed to have severe, AHI 54.9, obstructive sleep apnea- hypopnea syndrome and returned today for CPAP therapy 2 week follow-up. Sleep Study - Results Prior sleep studies: Yes Year and Where: 2020 [facility] CPAP Compliance Data - Data Reviewed with Patient Average duration of nightly device use: 6 HOURS 10 MINUTES Compliance rate %: 70 (20 days) Current pressure setting (cmH2O): 6-10 Average residual AHI: 1.3 Central apnea: .5 Obstructive apnea: .2 Average large leak: 14.8 Subjective Missed days of use due to: reports: other (MOUTH DRYNESS) Patient concerns: reports: mask leak noise, dry mouth, nose, throat (dry mouth and nose), other (SNORE WHILE USING THE CPAP). denies: aerophagia, mask discomf ort, air blowing in eyes, condensation in mask/hose, nasal congestion, epistaxis Observed to snore while using device: Yes (occasionally) Current pressure setting perceived as: comfortable On therapy, patient: reports: other (She feels she is still adjusting to it and it is waking her up more than without it). denies: drowsiness while driving Initial [place] Sleepiness Scale score: 4 Current [place] Sleepiness Scale score: 3 Allergies and Home Medications Home medication list reviewed: Yes (no changes) Allergy and home medication list: Allergies lisinopril Adverse Reaction (Intermediate, Verified 01/16/21 08:41) cough amphetamine aspartate * [From Adderall] Adverse Reaction (Verified 01/16/21 08:41) Nausea atomoxetine [From Strattera] Adverse Reaction (Verified 01/16/21 08:41) Unknown dextroamphetamine saccharate * [From Adderall] Adverse Reaction (Verified 01/16/21 08:41) Nausea diphenhydramine [From Benadryl] Adverse Reaction (Verified 01/16/21 08:41) body twitching and jerking Review of Systems Review of systems same as previous: Yes (no changes) Physical Exam Vital signs obtained and entered by: Katelin LOFTON CMA AAHI Blood Pressure: 132/76 (RIGHT, PULSE 67, RESP 16) Heart Rate: 67 O2 Saturation: 86 (CLOTH MASK) Height: 5 ft 4 in Weight: 182 lb Body Mass Index: 31.2 BMI Classification: Obese Impression and Plan 1. Obstructive Sleep Apnea-Hypopnea Syndrome, severe, with good treatment compliance and good apnea control since last appointment. On CPAP therapy, Guadalupe feels she wakes up more but she is slowly getting more used to using the CPAP. She has increased her compliance but still struggles with a few things. She has really dry mouth and sometimes nose. Oral and nasal dryness can be reduced with increasing the CPAP humidity as shown on sample device and the heated hose can be increased if condensation. In addition, I gave the patient a few samples of Corey Ease nasal cream to be used 4 times a day for 7-10 days and then as needed. She also does some oral venting which can increase mouth dryness. She has not been able to get a chinstrap yet from Her DME supplier. She was given a sample one that was in the office and she was encouraged to try using it. She voice understanding and agreement. Patient's apnea severity and rationale for treatment to reduce apnea, improve sleep quality and reduce cardiovascular and cerebrovascular events was reviewed. I also reviewed the benefit of consistent device use of CPAP for hypertension. Patient has not lost weight since last visit. She does states that she plans to start going to gym regularly to increase her exercise. I advised her to continue to try to lose weight for her overall health and to reduce apneas. * Continue auto CPAP pressure at 6-10 cmH2O * Use chin strap to reduce oral venting and dry mouth * Notify me if snoring with mask or feeling that the pressure is too much or too little * Attempt to lose weight * Call this office if any problems using CPAP * Return for follow up in 3 months, or sooner if concerns arise Counseling Topics: Spare mask, Weight loss health impact Visit Type: In Office Time Spent with Patient (minutes): 26 Provider Statement: I spent 100% of the Face to Face Visit with the patient with greater than 50% spent counseling the patient and coordination of care.
== END 2021-06-09 08:24 | disposition home or self-care (01) ==
LOC: SC 08:23
PROVIDERS: ATTEND Nurse Practitioner Family
DX: G47.33 Obstructive sleep apnea (adult) (pediatric) (principal); E66.9 Obesity, unspecified; Z68.31 Body mass index [BMI] 31.0-31.9, adult
CPT/HCPCS: 99213; G0463; 99212

== ENCOUNTER 2021-08-31 08:00 | Outpatient (CLI) | payer MEDICARE, OTHER ==
--- NOTE | 2021-08-31 19:24 | XRAY Report ---
PROCEDURE: Lumbar Spine 2 View INDICATIONS: LOW BACK PAIN TECHNIQUE: 3 views of the lumbar spine were acquired. COMPARISON: None. FINDINGS: Bones: 5 [id number] vertebrae are present. There is 5 mm anterolisthesis of L4 on L5. Degenerat sara endplate changes and bilateral facet arthrosis throughout lumbar spine is seen more prominent at L4-5 and L5-S1 levels. No vertebral body compression fractures. No suspicious bony lesions. Soft tissues: Overlying bowel gas pattern is normal. No suspicious soft tissue calcifications. IMPRESSION: 5 mm anterolisthesis of L4 on L5. No acute compression fracture. Degenerative disc disea se throughout lumbar spine. Reviewed by: Favio Bedoya MD on 08/31/2021 7:23 PM PDT Approved by: Favio Bedoya MD on 08/31/2021 7:23 PM PDT Station ID: [id number]
== END 2021-08-31 23:59 | disposition home or self-care (01) ==
LOC: DI.N 08:00
PROVIDERS: ATTEND Physician Assistant
DX: M43.16 Spondylolisthesis, lumbar region (principal); M47.816 Spondylosis without myelopathy or radiculopathy, lumbar region; M51.36 Other intervertebral disc degeneration, lumbar region

== ENCOUNTER 2021-11-28 15:29 | Outpatient (CLI) | payer MEDICARE, OTHER | END 2021-11-28 15:30 | disposition home or self-care (01) | LOC: LAB 15:29 | PROVIDERS: ATTEND Physical Medicine & Rehabilitation | DX: Z01.812 Encounter for preprocedural laboratory examination (principal); M51.26 Other intervertebral disc displacement, lumbar region; Z20.822 Contact with and (suspected) exposure to COVID-19 ==

== ENCOUNTER 2022-01-02 15:09 | Outpatient (CLI) | payer MEDICARE, OTHER | END 2022-01-02 15:10 | disposition home or self-care (01) | LOC: LAB.N 15:09 | PROVIDERS: ATTEND Nurse Practitioner | DX: Z53.9 Procedure and treatment not carried out, unspecified reason (principal) | CPT/HCPCS: 36415; 80053; 80061; 82607; 83036; 83721; 84443; 85025 ==

== ENCOUNTER 2022-01-02 15:33 | Outpatient (CLI) | payer MEDICARE, OTHER ==
--- NOTE | 2022-01-02 19:39 | XRAY Report ---
PROCEDURE: Foot 2 View RT INDICATIONS: R 3RD TOE PX TECHNIQUE: 2 views of the foot were acquired. COMPARISON: None FINDINGS: Bones: Healing oblique third proximal phalangeal fracture. Instrumentation noted involving the distal tibia and fibular, partially imaged Soft tissues: No tibiotalar joint effusion. Achilles tendon appears normal. IMPRESSION: Healing oblique third proximal phalangeal fracture Reviewed by: Elian Morales MD on 01/02/2022 6:38 PM AKDT Approved by: Elian Morales MD on 01/02/2022 6:38 PM AKDT Station ID: [id number]
== END 2022-01-02 15:34 | disposition home or self-care (01) ==
LOC: DI.N 15:33
PROVIDERS: ATTEND Nurse Practitioner
DX: S92.511D Displaced fracture of proximal phalanx of right lesser toe(s), subsequent encounter for fracture with routine healing (principal)

== ENCOUNTER 2022-01-03 07:05 | Outpatient (CLI) | payer MEDICARE, OTHER ==
[2022-01-03 12:02] LABS: BASOPHILS % (AUTO) 0.5 %; EOSINOPHILS # (AUTO) 0.1 10^3/uL (0.0-0.7); EOSINOPHILS % (AUTO) 1.3 %; HCT - HEMATOCRIT 39.2 % (37.0-47.0); HGB - HEMOGLOBIN 12.8 g/dL (12.0-16.0); LYMPHOCYTES # (AUTO) 0.7 10^3/uL (1.5-3.5); LYMPHOCYTES % (AUTO) 10.9 %; MEAN CORPUSCULAR HEMOGLOBIN 29.2 pg (27.0-31.0); MEAN CORPUSCULAR HGB CONC 32.7 g/dL (32.0-36.0); MEAN CORPUSCULAR VOLUME 89.3 fL (81.0-99.0); MEAN PLATELET VOLUME 9.7 fL (7.9-10.8); MONOCYTES # (AUTO) 0.5 10^3/uL (0.0-1.0); MONOCYTES % (AUTO) 7.1 %; NEUTROPHILS # (AUTO) 5.1 10^3/uL (1.5-6.6); NEUTROPHILS % (AUTO) 79.9 %; PLT - PLATELET COUNT 365 10^3/uL (130-450); RED BLOOD COUNT 4.39 10^6/uL (4.20-5.40); RED CELL DISTRIBUTION WIDTH 13.1 % (12.0-15.0); WHITE BLOOD COUNT 6.3 x10^3/uL (4.8-10.8)
[2022-01-03 12:17] LABS: ESTIMATED AVERAGE GLUCOSE 111 mg/dL (70-100); HEMOGLOBIN A1c% 5.5 % (4.27-6.07)
[2022-01-03 12:35] LABS: THYROID STIMULATING HORMONE 1.73 uIU/mL (0.34-5.60)
[2022-01-03 12:37] LABS: ALBUMIN 3.8 g/dL (3.2-5.5); ALBUMIN/GLOBULIN RATIO 1.1 (1.0-2.2); ALKALINE PHOSPHATASE 73 IU/L (42-121); ALT ALANINE AMINOTRANSFERASE 29 IU/L (10-60); AST ASPARTATE AMINOTRANSFERASE 28 IU/L (10-42); BILIRUBIN,TOTAL 0.7 mg/dL (0.2-1.0); BUN - BLOOD UREA NITROGEN 18 mg/dL (6-20); CARBON DIOXIDE - CO2 27 mmol/L (21-32); CHLORIDE 97 mmol/L (101-111); CHOL/HDL RATIO 3.3 (<4.4); CHOLESTEROL 220 mg/dL; GFR - MDRD 55 (>89); GLUCOSE 106 mg/dL (70-100); HDL CHOLESTEROL 66 mg/dL; LDL CHOLESTEROL,CALCULATED 135 mg/dL; POTASSIUM 3.5 mmol/L (3.5-5.0); SODIUM 132 mmol/L (135-145); TOTAL PROTEIN 7.2 g/dL (6.7-8.2); TRIGLYCERIDES 93 mg/dL; VLDL CHOLESTEROL 19 mg/dL
== END 2022-01-03 07:06 | disposition home or self-care (01) ==
LOC: LAB.N 07:05
PROVIDERS: ATTEND Nurse Practitioner
DX: I10 Essential (primary) hypertension (principal); E78.5 Hyperlipidemia, unspecified; R53.83 Other fatigue; E66.9 Obesity, unspecified
CPT/HCPCS: 36415; 80053; 80061; 82607; 83036; 83721; 84443; 85025